=== PATIENT | female | born 1990 | race Caucasian/White ===

== ENCOUNTER 2021-01-06 14:59 | Emergency (ER) | payer BC, SELFPAY ==
--- NOTE | ~2021-01-06 | XR_ITS ---
XR chest 2V DATE: 01/06/2021 15:59 INDICATION: Generalized chest pain and chest tightness for 4 days. Shortness of breath. TECHNIQUE: 2 views COMPARISON: None FINDINGS: Normal heart size. No hilar or mediastinal enlargement. No pulmonary infiltrate or consolid ation, pleural effusion or pulmonary vascular congestion or pneumothorax. IMPRESSION: No active cardiopulmonary disease Reviewed, dictated and finalized at location A.
[2021-01-06 15:00] VITALS: BP 118/83; PULSE 87; RESP 16; TEMP 36.6; O2SAT 100
--- NOTE | 2021-01-06 15:36 | ECG_ITS ---
Measurements Intervals [place] Rate: 76 P: 70 NH: 163 QRS: 72 QRSD: 95 T: 43 QT: 360 QTc: 407 Interpretive Statements SINUS RHYTHM WITH SINUS ARRHYTHMIA INCOMPLETE RIGHT BUNDLE BRANCH BLOCK BORDERLINE ECG Electronically Signed On 01-06-2021 19:25:20 CDT by Jamari Sierra D.O.
--- NOTE | 2021-01-06 15:45 | PC.NURSE ---
lab staff in room with pt, pt refuses lab draw. dr raya in with pt discussed benefits and risks of not doing labs. continues to refuse labs. RN in room with pt with medications ordered per erp. pt states It is not my stomach, I am not taking protonix. pt also refused gi cocktail that was ordered per dr raya.
--- NOTE | 2021-01-06 15:53 | PC.NURSE ---
pt to xray per wheelchair with xray staff.
--- NOTE | 2021-01-06 15:53 | ED.CHESTPAIN ---
HPI - Chest Pain General Chief Complaint: Chest Pain Stated Complaint: chest pain, trouble breathing Time Seen by Provider: 01/06/21 15:40 Source: patient Mode of arrival: ambulatory Limitations: no limitations History of Present Illness HPI narrative: Patient comes in with complaints of epigastric pain with sharp, pain moderately severe, and tightness in her chest for several days. She states this has been ongoing for a few days, but worse today. She complains of tightness in her chest that has been ongoing for some time, at least a week. Nothing has improved these symptoms at home. Discomfort has essentially been continuous. complaint: chest discomfort Onset (ago): day(s) Timing of current episode: episodic Prior episodes: Yes Onset: during rest Pain location: epigastric Pain radiation: other (associated chest tightness) Severity: mild Quality: other (sharp epigastric pain, and chest heaviness ) Relieving factors: nothing Exacerbating factors: nothing Context: recent illness Associated symptoms: dyspnea Treatment prior to arrival: none Risk Factors Coronary artery disease risk factors: smoking history Related Data Home Medications Medication Instructions Recorded Confirmed levonorgestrel-ethinyl estrad 1 tablet PO DAILY 01/06/21 01/06/21 [Juliette (28)] Review of Systems Constitutional: Constitutional: Reports no additional constitutional complaints Eyes: Eyes: Reports no additional eye complaints ENT: Reports system reviewed and no additional complaints, except as documented Cardiovascular: Cardiovascular: Reports no additional cardiovascular complaints Respiratory: Respiratory: Reports no additional respiratory complaints Gastrointestinal: Gastrointestinal: Reports no additional gastrointestinal complaints Genitourinary: Genitourinary: Reports no additional female genitourinary complaints Musculoskeletal: Musculoskeletal: Reports no additional musculoskeletal complaints Integumentary/Breasts: Skin/Breast: Reports system reviewed and no additional complaints, except as docu Neurologic: Reports system reviewed and no additional complaints, except as documented Psychiatric: Psychiatric: Reports no additional psychiatric complaints Endocrine: Endocrine: Reports no additional endocrine complaints Hematologic/Lymphatic: Hematologic/Lymphatic: Reports no additional hematologic/lymphatic complaints Allergic/Immunologic: Allergic/Immunologic: Reports no additional allergic/immunologic complaints [facility] Past Medical History Medical History (Updated 01/06/21 @ 17:03 by Casey Mejia MD) No significant past medical history Surgical History Surgical History (Updated 01/06/21 @ 15:58 by Casey Mejia MD) Hx of appendectomy Family History Family History (Updated 01/06/21 @ 16:00 by Casey Mejia MD) Other No significant family history Social History Social History (Updated 01/06/21 @ 16:00 by Casey Mejia MD) Tobacco type: e-cigarettes/vaping Sexual Orientation (if Verbalized by the Patient): Straight or Heterosexual Exam Const: General: no acute distress Orientation/consciousness: patient oriented x3 Limitations: altered mental status HENMT: Head: normal to inspection Ears: external ears normal General nose exam: Normal external nose present Mouth: Yes Normal oral and palatal mucosa present Throat: posterior oropharynx normal Eyes: Conjunctivae: conjunctivae normal Neck: Neck: normal visual inspection Chest: Chest palpation & inspection: normal inspection of the chest Resp: Effort & Inspection: normal respiratory effort Auscultation: clear to auscultation bilaterally Cardio: Rate: regular rate Rhythm: regular rhythm GI: Auscultation: normal bowel sounds Skin: General skin exam: normal color Neuro: General: patient oriented x3 and moves all extremities Extrem: General: normal to inspection Psych: Appearance: grossly normal Mental Status: mental statu
--- NOTE | 2021-01-06 16:05 | PC.NURSE ---
report to breana lockwood
[2021-01-06 16:30] VITALS: BP 118/70; PULSE 88; RESP 18; TEMP 36.6; O2SAT 96
[2021-01-06 17:01] VITALS: BP 120/80; PULSE 72; RESP 16; TEMP 36.6; O2SAT 97
== END 2021-01-06 17:04 | disposition left against medical advice (07) ==
PROVIDERS: Emergency Provider Emergency Medicine; PCP Family Medicine
DX: R07.89 Other chest pain (principal); K21.9 Gastro-esophageal reflux disease without esophagitis
CPT/HCPCS: 71046; 93005; 99282; 99283; A9270

== ENCOUNTER 2021-02-15 19:06 | Emergency (ER) | payer BC, SELFPAY ==
--- NOTE | ~2021-02-15 | XR_ITS ---
EXAMINATION: XR chest 2V 02/15/2021 19:54 INDICATION: Chest pain PROCEDURE: 2 view chest COMPARISON: No prior studies for comparison. FINDINGS: The lungs are clear. The cardiomediastinal silhouette is within normal limits. There are no pleural effusions. There is no pneumothorax suspected. IMPRESSION: 1: NO ACUTE CARDIOPULMONARY DISEASE. Reviewed, dictated and finalized at location A.
--- NOTE | 2021-02-15 19:26 | ECG_ITS ---
Measurements Intervals [place] Rate: 70 P: 79 [place]: 155 QRS: 74 QRSD: 85 T: 63 QT: 364 QTc: 395 Interpretive Statements SINUS RHYTHM POSSIBLE LEFT ATRIAL ENLARGEMENT INCOMPLETE RIGHT BUNDLE BRANCH BLOCK BASELINE WANDER- II, III BORDERLINE ECG Electronically Signed On 02-16-2021 6:43:52 CDT by Jamari Sierra D.O.
[2021-02-15 19:28] VITALS: BP 120/75; PULSE 80; RESP 19; TEMP 37.3; O2SAT 98
[2021-02-15 19:43] LABS: Basophils Percent Auto 0.6 % (0.2-1.2); Eosinophils Percent Auto 0.3 % (0-4.4); Hematocrit 39.5 % (37.0-47.0); Hemoglobin 13.2 g/dL (12.0-15.0); Immature Granulocyte Absolute 0.01 K/mm3 (0.00-0.031); Immature Granulocyte Percent A 0.1 % (0-0.5); Lymphocytes Percent Auto 28.5 % (18.3-44.2); Mean Corpuscular HGB Conc 33.4 g/dl (32-36); Mean Corpuscular Hemoglobin 30.2 pg (26-34); Mean Corpuscular Volume 90.4 fl (80-100); Mean Platelet Volume 11.4 fl (7.4-10.4); Monocytes Absolute Auto 0.4 K/mm3 (0.1-0.6); Monocytes Percent Auto 5.5 % (2.6-8.5); Neutrophils Absolute Auto 4.3 K/mm3 (1.3-6.7); Platelet Count Result 187 k/mm3 (150-375); Red Blood Count 4.37 M/mm3 (4.2-5.4); Red Cell Distribution Width 12.5 % (11.5-14.5); White Blood Count 6.7 K/mm3 (4.5-10.0)
[2021-02-15 19:51] LABS: Anion Gap 15 mmol/L (8-16); Blood Urea Nitrogen 10 mg/dL (7-17); Carbon Dioxide 22 mmol/L (22-30); Chloride 104 mmol/L (98-107); Estimated CRCL calculation 110 ml/min; Estimated Glomerular Filt Rate > 60; Glucose 88 mg/dL (65-105); Lipase 100 U/L (23-300); Potassium 3.6 mmol/L (3.4-5.0); Sodium 141 mmol/L (137-145)
[2021-02-15 20:03] LABS: Troponin I < 0.012 ng/mL (0.000-0.034)
[2021-02-15 20:12] LABS: Prothrombin Time 13.4 Seconds (11.1-14.7)
[2021-02-15 20:14] LABS: Partial Thromboplastin Time 27.2 SECONDS (22.3-36.8)
[2021-02-15 22:46] VITALS: BP 114/76; PULSE 63; RESP 14; TEMP 36.8; O2SAT 100
--- NOTE | 2021-02-15 22:52 | ED.CHESTPAIN ---
HPI - Chest Pain General Chief Complaint: Chest Pain Stated Complaint: chest pain Time Seen by Provider: 02/15/21 22:40 Source: patient Mode of arrival: ambulatory Limitations: no limitations History of Present Illness HPI narrative: This is a 30 year old female who presents for evaluation of chest pain. She describes migratory epigastric and lower chest pain for 1 week. She states her pain is constant, and it seems worse with movement and eating. She states her pain feels better with her laying supine. She denies nausea, vomiting, cough, sore throat runny nose. She has been taking omeprazole without relief. She denies fever or chills. She takes oral contraceptives Related Data Allergies Allergy/AdvReac Type Severity Reaction Status Date / Time No Known Allergies Allergy Verified 02/15/21 22:49 Review of Systems Review of Systems: All systems reviewed & are unremarkable except as noted in HPI and below PMFSH Past Medical History Medical History (Updated 02/16/21 @ 00:05 by Leny Fisher MD) Anxiety Surgical History Surgical History (Updated 02/15/21 @ 22:58 by Leny Fisher MD) No pertinent past surgical history Social History Social History (Updated 02/15/21 @ 22:58 by Leny Fisher MD) Smoking status: Current every day smoker Tobacco type: e-cigarettes/vaping Gender identity (if verbalized by the patient): Female Exam Const: General: no acute distress and alert Nutritional Appearance: thin Orientation/consciousness: patient oriented x3 Eyes: EOM: EOMs intact bilaterally Chest: Chest palpation & inspection: tenderness rib, costochondral junction and costal cartilage Resp: Effort & Inspection: normal respiratory effort and no retractions Auscultation: clear to auscultation bilaterally Cardio: Rate: regular rate Rhythm: regular rhythm Heart sounds: no murmurs GI: GI Palp: Yes Soft to palpation, Yes Tenderness to palpation present (GI) (epigastric) and No Guarding due to palpation present (GI) Auscultation: normal bowel sounds Skin: General skin exam: normal color Rashes: no rashes Neuro: General: patient oriented x3, moves all extremities and CN's II-XI intact bilaterally Psych: Mental Status: mental status grossly normal Affect: normal affect Course Reevaluation(s) Reevaluation #1: Patient refused toradol. I discussed labs are normal. Her pain is atypical and seems to be related to chest wall. She reports she has been to her PCP 2 times in month and they told her pain was due to GERD. she has been taking omeprazole for 1 week. Date: 02/16/21 Time: 00:04 Vital Signs Vital signs: Vital Signs Temperature 99.1 F 02/15/21 19:28 Pulse Rate 80 02/15/21 19:28 Respiratory Rate 19 02/15/21 19:28 Blood Pressure 120/75 02/15/21 19:28 Pulse Oximetry 98 02/15/21 19:28 Temperature 98.3 F 02/15/21 22:46 Pulse Rate 63 02/15/21 22:46 Respiratory Rate 14 02/15/21 22:46 Blood Pressure 114/76 02/15/21 22:46 Pulse Oximetry 100 02/15/21 22:46 MDM - Chest Pain Lab Data Attestation: I reviewed the patient's lab results. Result diagrams: 02/15/21 19:33 02/15/21 19:33 Labs: Lab Results 02/15/21 02/15/21 02/15/21 Range/Units 19:33 19:33 19:33 WBC 6.7 (4.5-10.0) K/mm3 RBC 4.37 (4.2-5.4) M/mm3 Hgb 13.2 (12.0-15.0) g/dL Hct 39.5 (37.0-47.0) % MCV 90.4 (80-100) fl MCH 30.2 (26-34) pg MCHC 33.4 (32-36) g/dl RDW 12.5 (11.5-14.5) % Plt Count 187 (150-375) k/mm3 MPV 11.4 H (7.4-10.4) fl Immature Gran % (Auto) 0.1 (0-0.5) % Neut % (Auto) 65.0 (45.5-73.1) % Lymph % (Auto) 28.5 (18.3-44.2) % [place] % (Auto) 5.5 (2.6-8.5) % Eos % (Auto) 0.3 (0-4.4) % Baso % (Auto) 0.6 (0.2-1.2) % Lymph # (Auto) 1.90 (0.9-3.2) K/mm3 [place] # (Auto) 0.4 (0.1-0.6) K/mm3 Eos # (Auto) 0.0 (0-0.3) K/mm3 Baso # (Auto) 0.0 (0.0-0.1) K/
[2021-02-15 23:22] LABS: Alanine Aminotransferase 12 U/L (4-35); Albumin Level 4.6 g/dL (3.5-5.1); Alkaline Phosphatase 46 U/L (38-126); Aspartate Amino Transferase 23 U/L (14-36); Bilirubin,Total 1.1 mg/dL (0.2-1.3)
[2021-02-15 23:34] LABS: Troponin I < 0.012 ng/mL (0.000-0.034)
[2021-02-15 23:44] LABS: D Dimer 0.37 ug/mL (<0.48)
[2021-02-16 00:18] VITALS: BP 110/74; PULSE 63; RESP 17; O2SAT 99
== END 2021-02-16 00:19 | disposition home or self-care (01) ==
PROVIDERS: Emergency Medicine; Emergency Provider General Practice; PCP Family Medicine
DX: R07.89 Other chest pain (principal); I45.10 Unspecified right bundle-branch block; R94.31 Abnormal electrocardiogram [ECG] [EKG]; F17.290 Nicotine dependence, other tobacco product, uncomplicated
CPT/HCPCS: 36415; 71046; 80048; 80076; 83690; 84484; 85025; 85380; 85610; 85730; 93005; 99284

== ENCOUNTER 2021-02-18 15:02 | Outpatient (CLI) | payer BC, SELFPAY ==
--- NOTE | ~2021-02-18 | US_ITS ---
EXAMINATION: US abdomen complete EXAM DATE: 02/18/2021 15:28 INDICATION: Epigastric pain. TECHNIQUE: Multiple grayscale and Doppler images of the complete abdomen were obtained (by a technolo gist who performed the scan) and subsequently reviewed. There is no prior study for comparison. FINDINGS: The abdominal aorta is normal in caliber. Visualized portion IVC is patent. The pancreatic head a nd body are normal in appearance. The pancreatic tail is not visualized. The liver has normal echogenicity and contour. There are no focal liver lesions identified. There is no evidence of intrahepatic biliary duct dilation. Portal venous flow was seen in the hepatopedal , normal direction and has normal Doppler waveform. Common bile duct measures 3 mm, which is normal. The gallbladder wall is normal in thickness, with ex pected amount of distention. No sonographic evidence of pericholecystic fluid. There is a 3-4 mm ga llbladder polyp not likely clinically significant. Technologist performing exam reports patient did not demonstrate sonographic Solares's sign. Please note that this sign is less reliable in patients w ho have received pain medication. Right kidney: There is normal contour and echogenicity. It measures 10.0 x 3.9 x 4.1 centimeters. There are no focal renal lesions identified. There is no hydronephrosis. Left kidney: There is normal contour and echogenicity. It measures 10.4 x 5.0 x 4.7 centimeters. T here are no focal renal lesions identified. There is no hydronephrosis. The spleen measures 9 centimeters and is morphologically normal. IMPRESSION: Unremarkable complete abdominal ultrasound exam. Reviewed, dictated and finalized at location B.
== END 2021-02-18 15:03 | disposition home or self-care (01) ==
LOC: CHSIMG 15:03
PROVIDERS: PCP Family Medicine; Visit Provider Family Medicine
DX: R10.13 Epigastric pain (principal)
CPT/HCPCS: 76700

== ENCOUNTER 2021-03-05 13:45 | Outpatient (CLI) | payer BC, SELFPAY ==
--- NOTE | 2021-03-05 14:30 | ECHO_ITS ---
Patient Info Name: Cherie Lyon Age: 30 years : 1990 Gender: Female Ht: 67 in Wt: 130 lbs BSA: 1.67 m2 HR: 65 bpm BP: 105 / 69 mmHg Exam Date: 03/05/2021 1:40 PM Exam Location: [facility] Patient Status: Outpatient Admit Date: 03/05/2021 Staff Ordering Physician: Michael Hernandez MD Handle Bender: Davon Solares, SINGHCS, RT Attending Provider: Michael Hernandez MD Referring Physician: David BOBBY; Exam Type: CA echo doppler color flow Study Info Indications R94.31 - Abnormal electrocardiogram ECG EKG Complete two-dimensional, color flow and Doppler transthoracic echocardiogram is performed. Strain analysis performed. Summary 1. Complete two-dimensional, color flow and Doppler transthoracic echocardiogram is performed. 2. Left ventricular chamber dimension is normal. 3. Left ventricular systolic function is normal, estimated at 60-65%. 4. The left ventricular diastolic function is normal. 5. E/e' 6 is not elevated. 6. Global longitudinal strain is normal at -19.3%. Left Ventricle E/e' 6 is not elevated. Global longitudinal strain is normal at -19.3%. Left ventricular chamber dimension is normal. Left ventricular systolic function is normal, estimated at 60-65%. The left ventricular diastolic function is normal. Right Ventricle Right ventricular systolic function is normal and with normal TAPSE 2.5 cm. Right ventricular chamber dimension is normal. Left Atria Left atrial chamber dimension is normal. Right Atria Right atrial chamber dimension is normal. Aortic Valve The aortic valve is trileaflet. There is no aortic valve stenosis. There is no aortic valve regurgitation. Pulmonic Valve There is no pulmonic regurgitation. Mitral Valve There is no mitral valve stenosis. There is no mitral valve regurgitation. Tricuspid Valve There is no tricuspid valve regurgitation. Pericardium/Pleural There is no pericardial effusion. Inferior Vena Cava Normal inferior vena cava with >50% collapse upon inspiration consistent with normal right atrial pressure, 5 mmHg. Aorta The aortic root size at the sinus of Valsalva is normal. Left Ventricular Outflow Tract Name Value Normal LVOT 2D LVOT Diameter 1.9 cm LVOT Doppler LVOT Peak Velocity 102 cm/s LVOT Peak Gradient 4 mmHg LVOT Mean Gradient 2 mmHg LVOT VTI 18 cm LVOT VTI/AV VTI Ratio 0.8 LVOT Stroke Volume 51 ml Mitral Valve Name Value Normal MV Doppler MV Decel Patrick 455 cm/s2 MV PHT 57 ms MV Area (PHT) 3.9 cm2 4.0-5.0 MV Diastolic Function
== END 2021-03-05 13:46 | disposition home or self-care (01) ==
LOC: CHSIMG 13:47
PROVIDERS: PCP Family Medicine; Visit Provider Family Medicine
DX: R94.31 Abnormal electrocardiogram [ECG] [EKG] (principal)
CPT/HCPCS: 93306

== ENCOUNTER 2022-05-20 13:45 | Outpatient (CLI) | payer BC, SELFPAY ==
--- NOTE | ~2022-05-20 | XR_ITS ---
EXAMINATION: XR chest 2V 05/20/2022 14:40 INDICATION: Chest pain PROCEDURE: 2 view chest COMPARISON: 02/15/2021 FINDINGS: The lungs are clear. The cardiomediastinal silhouette is within normal limits. There are no pleural effusions. There is no pneumothorax suspected. IMPRESSION: 1: NO ACUTE CARDIOPULMONARY DISEASE. Reviewed, dictated and finalized at location A.
--- NOTE | ~2022-05-20 | XR_ITS ---
EXAMINATION: XR thoracic spine 3V DATE: 05/20/2022 14:39 INDICATION: Back pain TECHNIQUE: AP, lateral and lateral swimmer's views of the thoracic spine were obtained. COMPARISON: None. FINDINGS: There is dextrocurvature of the midthoracic spine. Bone alignment is normal. There is no fr acture. The vertebral body heights and intervertebral disc spaces are maintained. IMPRESSION: 1. Mild dextrocurvature of the thoracic spine. Reviewed, dictated and finalized at location F.
== END 2022-05-20 13:46 | disposition home or self-care (01) ==
LOC: CHSIMG 13:48
PROVIDERS: PCP Family Medicine; Visit Provider Family Medicine
DX: R07.9 Chest pain, unspecified (principal); M54.9 Dorsalgia, unspecified
CPT/HCPCS: 71046; 72072

== ENCOUNTER 2022-07-09 11:28 | Outpatient (CLI) | payer BC, SELFPAY | END 2022-07-09 11:29 | disposition home or self-care (01) | LOC: CHSCARD 11:31 | PROVIDERS: PCP Family Medicine; Visit Provider Family Medicine | DX: R07.9 Chest pain, unspecified (principal); M54.9 Dorsalgia, unspecified | CPT/HCPCS: 94060; 94726; 94729 ==